=== PATIENT | female | born 1995 | race Caucasian/White ===

== ENCOUNTER 2018-12-28 10:49 | Emergency (ER) | payer OTHER ==
[2018-12-28 10:53] VITALS: BMI 21.8
--- NOTE | 2018-12-28 10:56 | PDOC ---
History of Present Illness - General Chief Complaint: Sore Throat Stated Complaint: SORE THROAT Time Seen by Provider: 12/28/18 10:56 History Source: Patient - History of Present Illness Initial Comments: 12/28/18 11:48 Pt presents to the ED complaining of a two day history of sore throat, accompanied by runny nose and mild cough. States that her boyfriend is experiencing the same symptoms and was recently diagnosed with strep throat. Denies fever, nausea or vomiting. States that she is having some mild difficulty with swallowing solids, but that she is able to tolerate PO liquids. Past History - Past Medical History Allergies/Adverse Reactions: Allergies Allergy/AdvReac Type Severity Reaction Status Date / Time No Known Allergies Allergy Verified 12/28/18 10:50 Home Medications: Ambulatory Orders NK [No Known Home Medication] 12/28/18 COPD: No Other medical history: DENIES - Suicide/Smoking/Psychosocial Hx Smoking History: Never smoked Hx Alcohol Use: No Drug/Substance Use Hx: No Review of Systems - Review of Systems Able to Perform ROS?: Yes Is the patient limited Tam[place] proficient: No Constitutional: No: Symptoms Reported, See HPI, Chills, Diaphoresis, Fever, Loss of Appetite, Malaise, Night Sweats, Weakness, Weight Stable, Unintentional Wgt. Loss, Unexplained wgt Loss, Other HEENTM: Yes: Nose Congestion, Throat Pain. No: Symptoms Reported, See HPI, Eye Pain, Blurred Vision, Tearing, Recent change in vision, Double Vision, Cataracts , Ear Pain, Ocular Prothesis, Ear Discharge, Nose Pain, Tinnitus, Nose Bleeding , Hearing Loss, Throat Swelling, Mouth Pain, Dental Problems, Difficulty Swallowing, Mouth Swelling, Other Respiratory: Yes: Cough. No: Symptoms reported, See HPI, Orthopnea, Shortness of Breath, SOB with Exertion, SOB at Rest, Stridor, Wheezing, Productive cough, Hemoptysis, Other Cardiac (ROS): No: Symptoms Reported, See HPI, Chest Pain, Edema, Irregular Heart Rate, Lightheadedness, Palpitations, Syncope, Chest Tightness, Other ABD/GI: No: Symptoms Reported, See HPI, Abdominal Distended, Abd. Pain w/ defecation, Blood Streaked Bowels, Constipated, Diarrhea, Difficulty Swallowing , Nausea, Poor Appetite, Poor Fluid Intake, Rectal Bleeding, Vomiting, Indigestion, Abdominal cramping, Tarry Stools, Other : No: Symptoms Reported, See HPI, Burning, Dysuria, Discharge, Frequency, Flank Pain, Hematuria, Incontinence, Pain, Urgency, Testicular Mass, Testicular Swelling, Lesions, Testicular Pain, Other *Physical Exam - Vital Signs Last Vital Signs Temp Pulse Resp BP Pulse Ox 0/0 L 12/28/18 10:50 - Physical Exam General Appearance: Yes: Nourished, Appropriately Dressed HEENT: positive: Normal Voice, Pharyngeal Erythema. negative: EOMI, ROBERT, Normal ENT Inspection, Symmetrical, Pharynx Normal, Pale Conjunctivae, Photophobia, Scleral Icterus (R), Scleral Icterus (L), Muffled/Hoarse voice, Tonsillar Exudate, Tonsillar Erythema, Nasal Congestion, Rhinorrhea, Sinus Tenderness, Orbits, Hearing Decreased, Hearing Grossly Normal, TM Bulging, TM Dull, TM Erythema, Lesions, Harris, Excessive drooling, Thrush, Other Neck: positive: Supple Respiratory/Chest: positive: Lungs Clear, Normal Breath Sounds Cardiovascular: positive: Regular Rhythm, Regular Rate, S1, S2 Gastrointestinal/Abdominal: positive: Flat, Soft. negative: Normal Bowel Sounds , Tender, Organomegaly, Pulsatile Mass, Increased Bowel Sounds, Decreased BS, Protuberent, Distended, Guarding, Rebound, Tenderness, Hernia, Mass, Hepatomegaly, Spleenomegaly, Other Musculoskeletal: positive: Normal Inspection Extremity: positive: Normal Inspection, Normal Range of Motion Integumentary: positive: Normal Color, Dry, Warm Neurologic: positive: Fully Oriented, Alert, Normal Mood/Affect Medical Decision Making - Medical Decision Making 12/28/18 11:53 Pt presents to the ED complaining of sore throat and nasal congestion most consistent with URI. Denies other complaints. Tolerating PO liquids. Rapid strep negative. Will discharge home with follow up. *DC/Admit/Observation/Transfer Diagnosis at time of Disposition: Pharyngitis Qualifiers: Pharyngitis/tonsillitis etiology: unspecified etiology Qualified Code(s): J02.9 - Acute pharyngitis, unspecified - Discharge Dispostion Disposition: HOME Condition at time of disposition: Good Decision to Admit order: No - Referrals - Patient Instructions Printed Discharge Instructions: DI for Viral Pharyngitis Additional Instructions: you came to the ED for a sore throat, most likely caused by a virus. You should return immediately to the ED for worsening symptoms, especially drooling , difficulty swallowing, high fever. - Post Discharge Activity
[2018-12-28 11:00] VITALS: BP 106/58; PULSE 80; TEMP 98.1
== END 2018-12-28 12:12 | disposition home or self-care (01) ==
LOC: FER 10:49
DX: J02.9 Acute pharyngitis, unspecified (principal)
CPT/HCPCS: 87070; 87880; 99281-25

== ENCOUNTER 2020-08-16 10:48 | Emergency (ER) | payer OTHER | END 2020-08-16 12:04 | disposition home or self-care (01) | LOC: JVIRT 10:48 | DX: Z01.84 Encounter for antibody response examination (principal) | CPT/HCPCS: 36415; 86769; Q3014-GT ==

== ENCOUNTER 2020-10-30 11:06 | Emergency (ER) | payer OTHER | END 2020-10-30 12:10 | disposition home or self-care (01) | LOC: JVIRT 11:06 | DX: Z11.52 Encounter for screening for COVID-19 (principal) | CPT/HCPCS: G2012-GT ==

== ENCOUNTER 2020-11-17 10:51 | Emergency (ER) | payer OTHER | END 2020-11-17 11:40 | disposition home or self-care (01) | LOC: JVIRT 10:51 | DX: R05 Cough (principal); Z11.52 Encounter for screening for COVID-19 | CPT/HCPCS: C9803; G2251-GT; U0003 ==